=== PATIENT | male | born 1985 | race Caucasian/White ===

== ENCOUNTER 2020-05-17 11:54 | Emergency (ER) | payer OTHER, SELFPAY ==
[2020-05-17 11:55] VITALS: BP 135/86; PULSE 93; RESP 16; TEMP 36.3; O2SAT 98; BMI 28.3
--- NOTE | 2020-05-17 12:06 | ED.VIS.GEN ---
History of Present Illness Informant: Patient Onset: Yesterday Narrative: 34-year-old male presents with left foot injury. He states yesterday he hit his left foot with a hatchet and has a small laceration. He cleaned it with an alcohol pad and closed it with glue. He presents today with concern it may need sutures. He also has pain in the ball of his foot with ambulation. <ShaynaMarya - Last Filed: 05/17/20 13:01> <Jamie Givens - Last Filed: 05/17/20 13:20> Chief Complaint: Lower Extremity Injury Past Medical History Smoking Status: Current some day smoker <ShaynaMarya - Last Filed: 05/17/20 13:01> <Jamie Givens - Last Filed: 05/17/20 13:20> - Allergies and Home Meds Allergies/Adverse Reactions: Allergies No Known Allergies Allergy (Verified 05/17/20 11:55) Primary Care Physician: Juancho Ramos MD [Primary Care Provider] - Review of Systems General: Denies: Chills, Fever, Sweats Eyes: Denies: Visual changes - bilaterally, Diplopia ENT: Denies: Rhinorrhea, Sore throat Cardiovascular: Denies: Chest pain, Palpitations Respiratory: Denies: Dyspnea, Cough, Dyspnea on exertion Gastrointestinal: Denies: Abdominal pain, Nausea, Vomiting, Diarrhea, Melena, Hematochezia Genitourinary: Denies: Dysuria, Hematuria, Frequency Musculoskeletal: Reports: Extremity Pain. Denies: Swelling Skin: Reports: Wounds. Denies: Rash Neurological: Denies: Headache, Weakness, Numbness <ShaynaAshliea - Last Filed: 05/17/20 13:01> Physical Exam Vital Signs/Narrative: Vital Signs Temp Pulse Resp BP Pulse Ox 05/17/20 11:55 97.4 F L 93 16 135/86 H 98 Inital Vital Signs reviewed: Yes General: Well nourished, Well developed, No Acute Distress Head: Normocephalic, Atraumatic Eyes: Perrl, EOMI ENT: Moist mucous membranes, No rhinorrhea Neck: Supple, Nontender Cardiovascular: Regular rate, Regular rhythm, No murmurs Respiratory: No distress, CTA bilaterally, Chest nontender Abdomen: Soft, Nontender, Nondistended, Normal bowel sounds Back: Nontender, Normal Inspection Extremities: No edema, - - 1 cm laceration on left dorsum of the foot over MTP. Already well approximated with glue. No surrounding erythema. Tender to palpation over first MTP, full range of motion of the ankle and digits. Sensation intact light touch in all dermatomes. Cap refill less than 2 seconds. Skin: Normal color, No rash Neurological: Alert, Oriented x3, Cranial nerves II-XII grossly intact, Normal Strength, Normal Sensation Psychological: Normal affect, Normal Mood <Marya Corral - Last Filed: 05/17/20 13:01> Vital Signs/Narrative: Vital Signs Temp Pulse Resp BP Pulse Ox 05/17/20 11:55 97.4 F L 93 16 135/86 H 98 <Jamie Givens - Last Filed: 05/17/20 13:20> Diagnostic/Tx/Re-eval Clinical Impression(s) from Imaging Studies Foot X-Ray 05/17/20 12:28 IMPRESSION: No fracture or malalignment. Electronically Signed: Alon Calderon MD ([facility]) at 12:58 EDT , Service support , - Medical Decision Making Presented with laceration and left foot pain from an injury yesterday. Laceration is clean and well approximated with glue the patient put on at home. Due to delayed presentation sutures are not indicated. X-ray was obtained and shows no acute pathology. He was given a post-op shoe for comfort and discharged home in stable condition. <Marya Corral - Last Filed: 05/17/20 13:01> - Medical Decision Making Patient was seen and evaluated. He does have a small laceration overlying the head of the first metatarsal. X-rays were obtained. There is evidence of acute fracture. The wound itself is well approximated without signs of infection. The patient was placed in a postoperative shoe for comfort and will follow-up as an outpatient. <Jamie Givens - Last Filed: 05/17/20 13:20> ED Disposition <Marya Corral - Last Filed: 05/17/20 13:01> <Jamie Givens - Last Filed: 05/17/20 13:20> - Plan for ED Patient: Disposition: Home or Assisted Living Diagnosis: Contusion of foot, left, Laceration of foot Instructions: ED FOOT CONTUSION Referrals: Juancho Ramos MD [Primary Care Provider] -
--- NOTE | 2020-05-17 12:28 | RAD_ITS ---
STUDY: X-RAY - LEFT FOOT CLINICAL: Male, 34 years old. INJURY, Dropped something on foot, small laceration at base of big toe laterally TECHNIQUE: 3 view(s) of the foot. COMPARISON: None. FINDINGS: Normal talus, calcaneus, and tarsal bones. Normal visualized subtalar, talonavicular, calcaneocuboid, tarsal and tarsometatarsal articulations. Normal metatarsi. Normal metatarsophalangeal joint of the great toe. Normal tibial and fibular sesamoid bones. Normal interphalangeal joint of the great toe. Normal phalanges of the great toe. Normal second through fifth metatarsophalangeal joints. Normal interphalangeal joints and phalanges of the lesser toes. The soft tissue structures are unremarkable. RAD/Foot min 3 Views IMPRESSION: No fracture or malalignment. Electronically Signed: Alon Calderon MD ([facility]) at 12:58 EDT , Service support ,
[2020-05-17] MEDS: Diphth,Pertuss(Acell),Tet Vac 0.5 ML Vial IM (13:18)
== END 2020-05-17 13:28 | disposition home or self-care (01) ==
PROVIDERS: Emergency Provider Physician Assistant; PCP Family Medicine
DX: S90.32XA Contusion of left foot, initial encounter (principal); S91.312A Laceration without foreign body, left foot, initial encounter; F17.200 Nicotine dependence, unspecified, uncomplicated; X58.XXXA Exposure to other specified factors, initial encounter
CPT/HCPCS: 73630; 90471; 90715; 99284

== ENCOUNTER → 2020-07-14 16:48 | Outpatient (CLI) | payer OTHER, SELFPAY | PROVIDERS: PCP Family Medicine; Referring Provider Family Medicine; Visit Provider Family Medicine | DX: Z20.828 Contact with and (suspected) exposure to other viral communicable diseases (principal) | CPT/HCPCS: 87635; U0003 ==

== ENCOUNTER → 2021-02-11 13:58 | Outpatient (CLI) | payer OTHER, SELFPAY ==
--- NOTE | 2021-02-11 14:01 | RAD_ITS ---
STUDY: X-RAY CHEST REASON FOR EXAM: Male, 35 years old. PLEURISY TECHNIQUE: PA and lateral views of the chest. COMPARISON: None. FINDINGS: The lungs are clear and expanded. There is no demonstrated pleural abnormality. Normal size heart. Normal mediastinum and boby. Normal visualized pulmonary arteries. Normal visualized aortic arch and descending thoracic aorta. Normal visualized thoracic spine. Normal visualized ribs, clavicles, and shoulders. There is no demonstrated abnormality of the visualized soft tissue structures of the upper abdomen. RAD/Chest PA and Lateral IMPRESSION: Normal x-ray examination of the chest. Electronically Signed: Keven Alvarez MD at 15:43 EDT , Service support ,
== END ==
PROVIDERS: PCP Family Medicine; Referring Provider Family Medicine; Visit Provider Family Medicine
DX: R09.1 Pleurisy (principal)
CPT/HCPCS: 71046